=== PATIENT | female | born 2005 | race Caucasian/White ===

== ENCOUNTER 2025-05-22 21:21 | Emergency (ER) | payer OTHER ==
[~2025-05-22] VITALS: Ht 167.6 cm; Wt 62.1 kg
[2025-05-22 22:35] LABS: BASOPHILS ABSOLUTE AUTO 0.04 K/mm3 (0.00-0.23); BASOPHILS PERCENT AUTO 0 % (0-2); EOSINOPHILS ABSOLUTE AUTO 0.04 K/mm3 (0.00-0.68); EOSINOPHILS PERCENT AUTO 0 % (0-6); Hematocrit 42.0 % (33.0-51.0); Hemoglobin 13.9 g/dL (11.5-16.0); IMMATURE GRAN ABSOLUTE AUTO 0.03 K/mm3 (0.00-0.10); IMMATURE GRAN PERCENT AUTO 0 % (0-1); LYMPHOCYTES ABSOLUTE AUTO 1.07 K/mm3 (0.84-5.20); LYMPHOCYTES PERCENT AUTO 7 % (21-46); MONOCYTES ABSOLUTE AUTO 0.67 K/mm3 (0.16-1.47); MONOCYTES PERCENT AUTO 4 % (4-13); Mean Corpuscular HGB Conc 33.1 g/dL (31.5-36.5); Mean Corpuscular Volume 90 fL (80-100); NEUTROPHILS ABSOLUTE AUTO 13.26 K/mm3 (1.96-9.15); NEUTROPHILS PERCENT AUTO 88 % (41-73); NRBC ABSOLUTE 0.00 K/mm3 (0.00-0.02); NRBC Auto 0.0 /100 WBC (0.0-0.2); Platelet Count 279 K/mm3 (150-400); RDW Coefficient Variation 12.9 % (11.7-14.2); RDW Standard Deviation 42.6 fL (35.1-46.3)
[2025-05-22 22:48] LABS: CORONAVIRUS COVID-19 AG Negative (NEGATIVE)
[2025-05-22 22:59] LABS: Alanine Aminotransfer (ALT/SGP 19.0 U/L (12-78); Albumin, Blood 4.3 g/dL (3.4-5.0); Albumin/Globulin Ratio 1.3 (0.8-1.8); Anion Gap 8.0 mmol/L (3-11); Aspartate Aminotrans (AST/SGOT 11.0 U/L (12-37); Bilirubin, Total 0.7 mg/dL (0.1-1.0); Blood Urea Nitrogen 10.0 mg/dL (8-24); CO2, Blood 26.0 mmol/L (21-32); Calcium, Blood 9.2 mg/dL (8.5-10.1); Chloride, Blood 106.0 mmol/L (98-108); Creatinine, Blood 0.78 mg/dL (0.40-1.00); Globulin, Blood 3.4 g/dL (2.2-4.0); Glucose, Blood 92.0 mg/dL (70-99); Potassium, Blood 3.5 mmol/L (3.5-5.5); Sodium, Blood 136.0 mmol/L (136-145); Total Protein, Blood 7.7 g/dL (6.4-8.2)
[2025-05-22] MEDS ORDERED: NS 1,000 ML IV SCH (23:25)
[2025-05-23] MEDS ORDERED: Ketorolac Tromethamine 15mg Vial IV ONE (00:05)
[2025-05-23] MEDS ORDERED: Ibuprofen600 MG PO (00:44)
[2025-05-23] MEDS ORDERED: ACET500 PO (00:44)
[2025-05-23] MEDS ORDERED: PENVK500 PO (00:49)
== END 2025-05-23 00:58 | disposition home or self-care (01) ==
LOC: ER 21:21
PROVIDERS: Student in an Organized Health Care Education/Training Program
DX: J02.9 Acute pharyngitis, unspecified (principal); E86.0 Dehydration
CPT/HCPCS: 80053; 83605; 84703; 85025; 87081; 87428-QW; 87430; 96374; 99283; J1885; J7030

== ENCOUNTER 2025-07-09 02:03 | Emergency (ER) | payer OTHER ==
[~2025-07-09] VITALS: Ht 157.5 cm; Wt 54.4 kg
[~2025-07-09 02:03] MED LIST: ACET500 PO; Ibuprofen600 MG PO; PENVK500 PO
== END 2025-07-09 05:40 | disposition home or self-care (01) ==
LOC: ER 02:03
DX: R04.0 Epistaxis (principal)
CPT/HCPCS: 99283; A9270